=== PATIENT | male | born 1940 | race African-American/Black ===

== ENCOUNTER 2020-03-04 01:49 | Emergency (ER) | payer MEDICARE ==
[~2020-03-04] VITALS: Ht 175.3 cm; Wt 72.6 kg
--- NOTE | 2020-03-04 02:06 | Emergency Room Report ---
History of Present Illness General Source: Patient Present Illness HPI This is a 79-year-old male with a history of chronic Frazier. He presents with chief complaint of weakness and malfunctioning of his Frazier. He said he woke up and said that his leg bag was disconnected. He had this catheter in for a month now. He also complains of mild weakness. He has no pain. No fever chills but no nausea no vomiting. He said he felt better now. EMS said that his initial blood pressure was low. Worse when he stood up. He denies any other complaint right now. Allergies: Coded Allergies: No Known Allergies (Unverified , 03/04/20) Patient History Past Medical History: see triage record, old chart reviewed, CAD Past Surgical History: other Pertinent Family History: none Social History: Denies: smoking Immunizations: other Reviewed Nursing Documentation: PMH: Agreed; PSxH: Agreed Review of Systems Constitutional: Reports: weakness Eye: Denies: eye pain, blurred vision ENT: Denies: ear pain, nose congestion, throat swelling Respiratory: Denies: cough, shortness of breath Cardiovascular: Denies: chest pain, palpitations Gastrointestinal: Denies: abdominal pain, diarrhea, nausea, vomiting Musculoskeletal: Denies: back pain, joint pain Skin: Denies: rash Neurological: Denies: headache, numbness Endocrine: Denies: increased thirst, increased urine Hematologic/Lymphatic: Denies: easy bruising All Other Systems: negative except mentioned in HPI Physical Exam Vitals initially with hypotension Sp02 EP Interpretation: reviewed, normal General Appearance: well appearing, no apparent distress, alert Head: normocephalic, atraumatic Eyes: bilateral eye PERRL, bilateral eye EOMI ENT: hearing grossly normal, normal pharynx Neck: full range of motion, supple, no meningismus Respiratory: chest non-tender, lungs clear, normal breath sounds Cardiovascular #1: regular rate, rhythm, no murmur Gastrointestinal: normal bowel sounds, non tender, no mass, no organomegaly, no bruit, non-distended Genitourinary: other - Patient has a Frazier. The plastic part of the catheter that connects to the leg bag is worn out. The connection is loose. Musculoskeletal: back normal, normal range of motion, gait/station normal Psychiatric: mood/affect normal Procedures Critical Care Time Critical Care Time Critical care is mandated in this patient who presented with acute renal failure with hyperkalemia. Patient require my urgent intervention to attenuate the risks of the metabolic collapse which may lead to cardiovascular collapse and . Critical care time is 35 minutes excluding any reportable procedure. Critical care time included evaluation, multiple reevaluation, looking at old charts, interpreting laboratory and diagnostic data, discussing case with patient and family and consultants, and charting. Medical Decision Making Diagnostic Impression: Primary Impression: ARF (acute renal failure) Qualified Codes: N17.9 - Acute kidney failure, unspecified Additional Impressions: Hyperkalemia Weakness Obstructive uropathy Malfunction of Frazier catheter Qualified Codes: T83.011A - Breakdown (mechanical) of indwelling urethral catheter, initial encounter ER Course Patient presents with malfunction his Frazier catheter. This probably is causing obstructive uropathy with renal failure and hyperkalemia. Patient treated medically with medication. He is asymptomatic from his hyperkalemia. EKG without any T wave changes. He does have a urinary tract infection. I discussed the case with Dr. Boudreaux, [facility]. Patient does have a history of A. fib and on Pradaxa. His creatinine has been normal as of January of this year. He accepted the patient for transfer. Case #[id number]. EKG Diagnostic Results Rate: normal Rhythm: NSR ST Segments: no acute changes Rhythm Strip Diag. Results EP Interpretation: yes Rate: 73 Rhythm: NSR, no PVC's, no ectopy Chest X-Ray Diagnostic Results Chest X-Ray Diagnostic Results : Chest X-Ray Ordered: Yes # of Views/Limited/Complete: 1 View Indication: Other EP Interpretation: Yes Interpretation: no consolidation, no effusion, no pneumothorax, no acute cardiopulmonary disease Impression: No acute disease Electronically Signed by: Milo Cr MD Status: improved Disposition: SHORT-TERM HOSP Condition: Stable Scripts Unable to Obtain Active Prescriptions or Reported Meds Milo Cr MD Mar 04, 2020 02:06
--- NOTE | 2020-03-04 02:15 | NUR ---
ED Nurse Note: Orthostatic blood pressure as follows: Standing 69/41 Sitting 95/63 Supine Fowlers / Addendum: 03/04/20 at 0237 by AIDLIA ED Nurse Note: Orthostatic blood pressure as follows: Standing 69/41 Sitting 95/63 Supine semi-fomargotlers /72
--- NOTE | 2020-03-04 02:15 | NUR ---
ED Nurse Note: Patient brought in by ambulance RA26 from home d/t dizziness and hypotension. Patient aao x 4 and normally ambulatory but currently feeling weak to do so. Patient reports he feels dizzy when standing, no c/o pain. Patient reports he has had intermitted left sided chest pain for the last few days. Patient also c/o leaking urinary catheter. Patient has left AC 18g IV inserted by EMS, blood drawn and sent to lab. Patient changed into gown and placed on cardiac care nurse. No acute distress noted.
--- NOTE | 2020-03-04 02:17 | NUR ---
ED Nurse Note: Patient reprorts he takes medications at home but unable to provide names and doses, states his has that information and will be bringing it to the hospital.
[2020-03-04 02:18] VITALS: BP 69/41
[2020-03-04 02:21] VITALS: BP_SYST 115; BP_SYST 95; BP_DIAS 63; BP_DIAS 72
[2020-03-04 02:24] LABS: BASOPHILS % (AUTO) 0.5 % (0.0-2.0); EOSINOPHILS % (AUTO) 1.4 % (0.0-3.0); HEMATOCRIT 39.9 % (42.0-52.0); HEMOGLOBIN 12.4 G/DL (14.2-18.0); LYMPHOCYTES % (AUTO) 29.9 % (20.0-45.0); MEAN CORPUSCULAR VOLUME 80 FL (80-99); MONOCYTES % (AUTO) 9.2 % (1.0-10.0); NEUTROPHILS % (AUTO) 58.9 % (45.0-75.0); PLATELET COUNT 235 K/UL (150-450); RED BLOOD COUNT 4.98 M/UL (4.70-6.10)
--- NOTE | 2020-03-04 02:32 | NUR ---
ED Nurse Note: Patient has 16F tierney cath inserted prior to arrival, removed and replaced with 16F tierney urinary cath, patient and draining, lo care provided.
[2020-03-04 02:36] VITALS: BP 124/67
[2020-03-04 02:38] LABS: APPEARANCE,URINE CLOUDY; BILIRUBIN, URINE NEGATIVE (NEGATIVE); COLOR,URINE RED; GLUCOSE, URINE (UA) NEGATIVE (NEGATIVE); KETONES,URINE NEGATIVE (NEGATIVE); LEUKOCYTE ESTERASE ,URINE 2+ (NEGATIVE); NITRITE,URINE NEGATIVE (NEGATIVE); PH,URINE 5 (4.5-8.0); PROTEIN,URINE 3+ (NEGATIVE); UROBILINOGEN,URINE NORMAL MG/DL (0.0-1.0)
[2020-03-04 02:39] LABS: ALANINE AMINOTRANSFERASE 22 U/L (12-78); ALBUMIN 3.4 G/DL (3.4-5.0); ALBUMIN/GLOBULIN RATIO 0.9 (1.0-2.7); ALKALINE PHOSPHATASE 99 U/L (46-116); ASPARTATE AMINO TRANSFERASE 22 U/L (15-37); BILIRUBIN,TOTAL 0.6 MG/DL (0.2-1.0); BLOOD UREA NITROGEN 108 mg/dL (7-18); CALCIUM 9.4 MG/DL (8.5-10.1); CARBON DIOXIDE 18 MMOL/L (21-32); CHLORIDE 100 MMOL/L (98-107); CREATININE 4.6 MG/DL (0.55-1.30); SODIUM 131 MMOL/L (136-145)
[2020-03-04 02:44] LABS: POTASSIUM 6.4 MMOL/L (3.5-5.1)
[2020-03-04] MEDS ORDERED: cefTRIAXone 1 GM in NS 55 ML IVPB ONE (03:00)
[2020-03-04] MEDS ORDERED: Sodium Polystyrene Sulfonate 15gm Powder ORAL ONE (03:00)
[2020-03-04] MEDS ORDERED: Calcium Gluconate 1gm/10ml vial IVP ONE (03:00)
[2020-03-04] MEDS ORDERED: Insulin Human Regular 100units/ml 3ml IV ONE (03:00)
[2020-03-04] MEDS ORDERED: Sodium Bicarbonate 50ml Carp IV ONE (03:45)
--- NOTE | 2020-03-04 03:55 | NUR ---
ED Nurse Note: Repeat BMP and Covid swab drawn and sent to lab.
[2020-03-04 04:12] LABS: CALCIUM 7.8 MG/DL (8.5-10.1); CREATININE 3.9 MG/DL (0.55-1.30); POTASSIUM 4.9 MMOL/L (3.5-5.1)
--- NOTE | 2020-03-04 06:10 | NUR ---
ED Nurse Note: Patient sleeping in bed, no acute distress noted.
[2020-03-04 06:20] VITALS: BP 98/59
--- NOTE | 2020-03-04 06:55 | NUR ---
ED Nurse Note: Report given to ADRIANA Clay at [facility].
--- NOTE | 2020-03-04 07:06 | NUR ---
ER DISCHARGE NOTE: Patient is cleared to be discharged to [facility] per ERMD, pt is aox4, on room air, with stable vital signs. [facility] was given patient packet, ambulance personnel took all belongings. patient stable during transport, no acute distress noted upon departure.
[2020-03-04 07:07] VITALS: BP 108/65
--- NOTE | 2020-03-04 14:55 | Diagnostic Imaging Report ---
Indication: Shortness of breath Technique: One view of the chest Comparison: none Findings: Patient's chin obscures the upper mediastinum. Lungs and pleural spaces are clear. The heart size is normal Impression: Neck acute process
== END 2020-03-04 07:14 | disposition short-term general hospital (02) ==
LOC: EDUNIT# 01:49 → EDBD 01:49 → EMR 02:05
DX: N17.9 Acute kidney failure, unspecified (principal); E87.5 Hyperkalemia; T83.011A Breakdown (mechanical) of indwelling urethral catheter, initial encounter; R53.1 Weakness; N13.9 Obstructive and reflux uropathy, unspecified; N39.0 Urinary tract infection, site not specified; I25.10 Atherosclerotic heart disease of native coronary artery without angina pectoris; I48.91 Unspecified atrial fibrillation; Z79.01 Long term (current) use of anticoagulants
CPT/HCPCS: 36415; 51702; 71045; 80048; 80053; 81003; 84484; 85025; 87086; 93005; 96361; 96365; 96375; 99284; J0610; J0696; J1815; J7030; U0002